=== PATIENT | male | born 1945 | race Caucasian/White ===

== ENCOUNTER → 2021-10-12 00:15 | Outpatient (CLI) | payer MEDICARE, BC, SELFPAY ==
--- NOTE | 2021-10-12 | DI.US_ITS ---
Exam(s) US THYROID EXAM: US THYROID CLINICAL HISTORY: RT THYROID NODULE, E04.1. TECHNIQUE: Ultrasound thyroid performed using standard protocol. COMPARISON: No exams were available for comparison FINDINGS: ISTHMUS: 3 millimeters mm RIGHT LOBE: Size: 4.2 x 1.9 x 1.4 cm Echogenicity: Normal. Vascularity: Normal. Nodules: 1.4 x 0.8 x 0.8 centimeter mixed solid and cystic nodule with ill-defined borders and puncta te echogenic foci. TR 4 two additional smaller nodules at the lower pole, less than 1 cm in size.. LEFT LOBE: Size: 4.0 x 1.6 x 1.4 cm Echogenicity: Normal. Vascularity: Normal. Nodules: 5 millimeter solid hyperechoic nodule with ill-defined borders and punctate calcifications, TR 4. OTHER FINDINGS: None. IMPRESSION: 1.4 centimeter nodule right lobe, TR 4. Other small bilateral nodules. DATA REPOSITORY:
== END ==
PROVIDERS: Visit Provider Otolaryngology
DX: E04.1 Nontoxic single thyroid nodule (principal); E04.8 Other specified nontoxic goiter
CPT/HCPCS: 76536

== ENCOUNTER → 2022-01-17 01:43 | Outpatient (CLI) | payer MEDICARE, BC, SELFPAY ==
--- NOTE | 2022-01-17 07:30 | DI.US_ITS ---
Exam(s) US NEEDLE LOCAL OTHER WO RAD EXAM: US NEEDLE LOCAL OTHER WO RAD CLINICAL HISTORY: TR5 lesion,ultrasound guided bx, e04.2,multinodular thyroid. COMPARISON: US US THYROID from 10/12/2021 TECHNIQUE: Ultrasound was provided for Dr. Huang for guidance with thyroid nodule biopsy.. FINDINGS: Please see procedure note for details. DATA REPOSITORY:
--- NOTE | 2022-01-17 12:05 | PAPNONF_PTH ---
PATIENT: Jason Penaloza LOC: [facility]#:[id number] AGE/SX: 80/M ROOM: RE01/17/[address]: Tomy Huang MD : 1945 BED: DIS: SPEC #: [id number] RECD: 01/17/22 13:22 STATUS: SARWAT REQ #: [id number] JAKI: 01/17/22 12:[address]: Tomy Huang [facility]PT[facility] Cytology RECD BY: Cristiane Carpenter ENTERED: 01/17/22 13:23 SP TYPE: OZIEL SKELTON DR: Lisseth Stokes Tissues: 1 - BODY FLUID CYTO-FINE NEEDLE [facility] Procedures: BODY FLUID CYTO-FINE NEEDLE [facility] Comments: [id number] (FNA PATH CONSULT)
--- NOTE | 2022-01-17 12:47 | W.PROCNOTE ---
Date of service: 01/17/22 Procedure Note Date of procedure: 01/17/22 Procedure: Ultrasound guided FNA, right thyroid nodule, pathology was present Surgeon/Proceduralist/Physician: Tomy Huang Procedure Diagnosis: TR 4/5 right-sided thyroid nodule Procedure Indications: The patient has a right-sided thyroid nodule which is slowly increasing in size, measured once as a TR 5 lesion and most recently is a TR 4 lesion. Options were explained to the patient regarding further management. He elected to undergo FNA. Consent was filled out and signed. The below was then performed. Risks including bleeding, infection, failure to make a diagnosis, and need for further treatment have been discussed. Procedure Description: The right-sided thyroid nodule was visualized under ultrasound. The patient was then prepped and draped in appropriate fashion. 1% lidocaine with 1/100,000 epinephrine was injected in the skin and subcutaneous tissues overlying the mass. A 25-gauge needle was then carefully introduced into the thyroid nodule under direct visualization using ultrasound. A total of 5 passes was made. Cellular adequacy was deemed by pathology to be adequate. Afirma slides were prepared in case the needle was felt to send it for genetic analysis. There was no significant bleeding. A sterile dressing was applied. The patient was able to ambulate afterwards and his vital signs were stable. He will remove the bandage tonight and not replace it. She will use ibuprofen or Tylenol for any discomfort. He will call my office if he does not hear from me with regard to pathology within 7 days. Further care will depend upon the findings by pathology
== END ==
PROVIDERS: PCP Family Medicine; Visit Provider Otolaryngology
DX: E04.2 Nontoxic multinodular goiter (principal)
CPT/HCPCS: 10005; 76942; 88104